=== PATIENT | male | born 1990 | race Caucasian/White ===

== ENCOUNTER 2021-01-07 08:42 | Outpatient (CLI) | payer OTHER ==
--- NOTE | 2021-01-07 16:34 | XRAY Report ---
PROCEDURE: Lumbar Spine 2 View INDICATIONS: STRAIN OF MUSCLE, FASCIA, AND TENDON OF LOWER BACK TECHNIQUE: 2 views of the lumbar spine were acquired. COMPARISON: None. FINDINGS: Bones: Transitional lumbosacral vertebral anatomy with 6 lumbar-type nonrib-bearing vertebral bodies. There is normal bony alignment. No vertebral body compression fractures. No suspicious bony lesion s. Soft tissues: Overlying bowel gas pattern is normal. No suspicious soft tissue calcifications. IMPRESSION: 1. Transitional anatomy with 6 lumbar-type nonrib-bearing vertebral bodies. 2. No fracture. No osseous lesion. If there is continued clinical concern for pathology, then MRI sh ould be considered for further evaluation. Reviewed by: Sallie Pavon MD, PhD on 01/07/2021 4:32 PM PDT Approved by: Sallie Pavon MD, PhD on 01/07/2021 4:32 PM PDT Station ID: [id number]
== END 2021-01-07 23:59 | disposition home or self-care (01) ==
LOC: DI.N 08:42
PROVIDERS: ATTEND Family Medicine
DX: S39.012A Strain of muscle, fascia and tendon of lower back, initial encounter (principal)

== ENCOUNTER 2023-05-23 11:07 | Outpatient (CLI) | payer BC ==
[2023-05-23 11:34] LABS: ALBUMIN 4.4 g/dL (3.2-5.5); ALBUMIN/GLOBULIN RATIO 1.8 (1.0-2.2); ALKALINE PHOSPHATASE 65 IU/L (42-121); ALT ALANINE AMINOTRANSFERASE 54 IU/L (10-60); AST ASPARTATE AMINOTRANSFERASE 28 IU/L (10-42); BILIRUBIN,TOTAL 0.4 mg/dL (0.2-1.0); BUN - BLOOD UREA NITROGEN 11 mg/dL (6-20); CALCIUM 9.6 mg/dL (8.5-10.3); CARBON DIOXIDE - CO2 28 mmol/L (21-32); CHLORIDE 106 mmol/L (101-111); CHOL/HDL RATIO 2.3 (<5.0); CHOLESTEROL 135 mg/dL; CREATININE 0.8 mg/dL (0.6-1.3); GFR - MDRD 112 (>89); GLUCOSE 132 mg/dL (74-104); HDL CHOLESTEROL 58 mg/dL; LDL CHOLESTEROL,CALCULATED 40 mg/dL; LDL/HDL RATIO 0.7 (<3.6); POTASSIUM 3.8 mmol/L (3.5-4.5); SODIUM 139 mmol/L (135-145); TOTAL PROTEIN 6.9 g/dL (6.4-8.9); TRIGLYCERIDES 186 mg/dL (48-352); VLDL CHOLESTEROL 37 mg/dL
[2023-05-23 11:49] LABS: THYROID STIMULATING HORMONE 3.37 uIU/mL (0.34-5.60)
[2023-05-23 13:38] LABS: ESTIMATED AVERAGE GLUCOSE 100 mg/dL (70-100); HEMOGLOBIN A1c% 5.1 % (4.27-6.07)
== END 2023-05-23 11:08 | disposition home or self-care (01) ==
LOC: LAB 11:07
PROVIDERS: ATTEND Family Medicine
DX: F41.9 Anxiety disorder, unspecified (principal); F32.A Depression, unspecified; E66.9 Obesity, unspecified; R41.840 Attention and concentration deficit
CPT/HCPCS: 36415; 80053; 80061; 83036; 83721; 84443